=== PATIENT | female | born 1975 | race Caucasian/White ===

== ENCOUNTER 2016-04-28 07:48 | Outpatient (CLI) | payer OTHER ==
[2016-04-28] MEDS ORDERED: GADOBUTROL 7.5 MMOL/7.5 ML VIAL IVP ONE (08:44)
== END 2016-04-28 07:49 | disposition home or self-care (01) ==
DX: G51.0 Bell's palsy (principal); I65.22 Occlusion and stenosis of left carotid artery
CPT/HCPCS: 70553; A9585

== ENCOUNTER 2018-09-12 16:49 | Emergency (ER) | payer OTHER ==
[2018-09-12] MEDS ORDERED: IBUPROFEN 800 MG TABLET PO STA (17:41)
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
[2018-09-12 18:54] VITALS: BP 132/89
== END 2018-09-12 18:54 | disposition home or self-care (01) ==
LOC: ED 16:49
DX: S16.1XXA Strain of muscle, fascia and tendon at neck level, initial encounter (principal); V43.52XA Car driver injured in collision with other type car in traffic accident, initial encounter
CPT/HCPCS: 72040; 99282; 99283; A9270

== ENCOUNTER 2021-01-06 10:31 | Emergency (ER) | payer OTHER ==
[2021-01-06 10:54] VITALS: BP 148/96
[2021-01-06] MEDS ORDERED: BENZONATATE 100 MG CAPSULE PO STA (11:02)
[2021-01-06] MEDS ORDERED: guaiFENesin/CODEINE 5 ML UDC PO STA (11:02)
--- NOTE | 2021-01-06 11:04 | ED Physician Documentation ---
History of Present Illness - Stated complaint Stated Complaint: C+/COUGH/SOA - Chief complaint Chief Complaint: Resp - History obtained from History obtained from: Patient - Additonal information Additional information: 45-year-old woman who did not get immunized against Covid became sick a week and a half ago and subsequently tested positive for Covid and presents referred by the walk-in clinic requesting something for the cough. Reportedly was sent from the walk-in clinic due to tachycardia. Review of Systems Constitutional: reports: Fatigue. 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 - Present Medications Home Medications: Ambulatory Orders Medication Instructions Recorded Confirmed Benzonatate [Tessalon] 200 mg PO QID PRN #20 cap 01/06/21 guaiFENesin/CODEINE [Robitussin AC] 5 - 10 ml PO Q6H PRN #120 ml 01/06/21 - Allergies Allergies/Adverse Reactions: Allergies Allergy/AdvReac Type Severity Reaction Status Date / Time Penicillins Allergy Unknown Verified 01/06/21 10:53 - Social History Does the pt smoke?: No Smoking Status: Never smoker Does the pt drink ETOH?: Yes Does the pt have substance abuse?: No - Immunizations Immunizations are current?: Yes PD ED PE NORMAL - Vitals Vital signs reviewed: Yes - General General: Alert and oriented X 3, No acute distress - HEENT HEENT: PERRL, EOMI - Neck Neck: Supple, no meningeal sign, No bony TTP - Cardiac Cardiac: RRR, No murmur - Respiratory Respiratory: No respiratory distress, Other (Mildly diminished right base, nonlabored) - Abdomen Abdomen: Non tender - Extremities Extremities: No edema, No calf tenderness / cord - Neuro Neuro: Alert and oriented X 3, Normal speech - Psych Psych: Normal mood, Normal affect Results - Vitals Vitals: Vital Signs - 24 hr 01/06/21 01/06/21 10:50 11:26 Temperature 37.0 C Heart Rate 112 H 105 H Respiratory 20 Rate Blood Pressure 148/96 H O2 Saturation 98 Oxygen O2 Source Room air PD MEDICAL DECISION MAKING - ED course ED course: 45-year-old woman with Covid presents with persistent cough requesting medications for that. Mab therapy considered but there is a shortage. No evidence of bacterial superinfection or other concern per se. She is modestly tachycardic, but that is expected since she is ill. Departure - Departure Disposition: Home, Self Care Clinical Impression: COVID-19 Condition: Good Record reviewed to determine appropriate education?: Yes Instructions: ED Viral Syndrome Prescriptions: guaiFENesin/CODEINE [Robitussin AC] 5 - 10 ml PO Q6H PRN #120 ml PRN Reason: Cough Benzonatate [Tessalon] 200 mg PO QID PRN #20 cap PRN Reason: Cough Comments: Prescription sent to [facility]. Return for new or worsening symptoms. Discharge Date/Time: 01/06/21 11:28
== END 2021-01-06 11:28 | disposition home or self-care (01) ==
LOC: ED 10:31
DX: U07.1 COVID-19 (principal); I10 Essential (primary) hypertension
CPT/HCPCS: 99282; 99283; A9270